=== PATIENT | female | born 1965 | race Two or more races ===

== ENCOUNTER 2018-01-07 12:15 | Outpatient (CLI) | payer OTHER | END 2018-01-07 12:22 | disposition home or self-care (01) | LOC: MAMO-SONO 12:15 | DX: Z12.31 Encounter for screening mammogram for malignant neoplasm of breast (principal); N60.11 Diffuse cystic mastopathy of right breast ==

== ENCOUNTER → 2018-04-23 16:02 | Outpatient (CLI) | payer OTHER | END | disposition home or self-care (01) | LOC: LAB 16:02 | DX: E03.8 Other specified hypothyroidism (principal); N39.0 Urinary tract infection, site not specified; D64.89 Other specified anemias; E11.69 Type 2 diabetes mellitus with other specified complication ==